=== PATIENT | female | born 1995 | race Caucasian/White ===

== ENCOUNTER 2016-09-04 08:56 | Emergency (ER) | payer BC, OTHER ==
[~2016-09-04] VITALS: Ht 175.3 cm; Wt 123.0 kg
[~2016-09-04 08:56] MED LIST: BISM262T59 PO; IBUP200C11 PO
[2016-09-04 09:23] VITALS: Ht 175.3 cm; Wt 123.0 kg
[2016-09-04] MEDS ORDERED: DEXAMETHASONE 10 MG/ML 1 ML INJ IM ONE (11:00)
[2016-09-04] MEDS ORDERED: AZIT250T94 PO (11:10)
[2016-09-04] MEDS ORDERED: PRED20TA PO (11:10)
[2016-09-04 11:25] VITALS: BP 132/74; PULSE 88; RESP 18; TEMP 97.9
--- NOTE | 2016-09-04 15:36 | ERD ---
ER Documentation Chief Complaint Date/Time DATE: 09/04/16 TIME: 15:[address] X1 WEEK AND COUGH HPI This patient is a 21-year-old female with no significant medical history presenting to the emergency department for sore throat 1 week. Additionally the patient has had tactile fevers. Last medication taken was NyQuil last night. Additionally the patient has had cough for 2 days which has been nonproductive. The patient denies urinary symptoms, nausea, vomiting, diarrhea , or other symptoms at this time. ROS All systems reviewed and are negative except as per history of present illness. Medications Home Meds Active Scripts Prednisone* (Prednisone*) 20 Mg Tab, 40 MG PO DAILY for 5 Days, #10 TAB Prov:PERCY DAO PA-C 09/04/16 Azithromycin* (Zithromax*) 250 Mg Tablet, 250 MG PO .ZPACK DIRECTED, #6 TAB TAKE 500 MG (2 TABS) THE FIRST DAY THEN 250 MG (1 TAB) DAYS 2-5 Prov:PERCY DAO PA-C 09/04/16 Reported Medications Bismuth Subsalicylate* (Pepto-Bismol*) 262 Mg Tablet, 1 TAB PO, TAB 12/09/13 Ibuprofen* (Advil*) 200 Mg Capsule, 200 MG PO Q6H Y for PAIN, CAP 12/09/13 Allergies Allergies: Coded Allergies: Penicillins (Verified Allergy, Unknown, 12/09/13) Uncoded Allergies: PCN (Allergy, Mild, RASH, 11/29/10) PMhx/Soc History of Surgery: No Anesthesia Reaction: No Hx Neurological Disorder: No Hx Respiratory Disorders: No Hx Cardiac Disorders: No Hx Psychiatric Problems: No Hx Miscellaneous Medical Probl: No Hx Alcohol Use: No Hx Substance Use: No Hx Tobacco Use: No Smoking Status: Never smoker FmHx Noncontributory for chief complaint Physical Exam Vitals Vital Signs Date Time Temp Pulse Resp B/P Pulse Ox O2 Delivery O2 Flow Rate FiO2 09/04/16 11:25 97.9 88 18 132/74 96 Room Air 09/04/16 09:23 99.4 90 18 148/91 96 Physical Exam Const: The patient is resting comfortably in no acute distress. Head: Atraumatic Eyes: Normal Conjunctiva ENT: Normal External Ears, Nose and Mouth. There is bilateral tonsillar hypertrophy with scant exudate present. There is tonsillar erythema. The airway is clear. There is no uvular deviation. Neck: Full range of motion..~ No meningismus. Resp: Clear to auscultation bilaterally Cardio: Regular rate and rhythm, no murmurs Abd: Soft, non tender, non distended. Normal bowel sounds Skin: No petechiae or rashes Back: No midline or flank tenderness Ext: No cyanosis, or edema Neur: Awake and alert Psych: Normal Mood and Affect Results 24 hrs Current Medications Medications (Trade) Dose Ordered Sig/Bryant Route PRN Reason Start Time Stop Time Status Last Admin Dose Admin Dexamethasone (Decadron) 10 mg ONCE ONCE IM 09/04/16 11:00 09/04/16 11:01 DC 09/04/16 10:52 Procedures/MDM 21-year-old female presents secondary to complaints of odynophagia. On physical examination the patient's vitals are within normal limits. Examination of the throat reveals bilateral tonsillar hypertrophy with scant exudate present. There is tonsillar erythema. Airway is clear there is no deviation and I have low suspicion for peritonsillar abscess, retropharyngeal abscess, epiglottitis, mastoiditis, septicemia, deep tissue infection, or other emergent conditions. Patient is stable for outpatient management with a prescription for azithromycin given her penicillin allergy. The patient was given 10 mg IM Decadron in the department is feeling improved on reevaluation. Patient agrees with the discharge plan and diagnosis. Strict ER return precautions were given. Patient to follow-up with her primary care physician as soon as possible. Departure Diagnosis: Primary Impression: Tonsillitis Additional Impression: Sore throat Condition: Fair Patient Instructions: When You Have a Sore Throat, Self-Care for Sore Throats, When Your Child Has Pharyngitis or Tonsillitis Referrals: COMMUNITY CLINICS YOU HAVE RECEIVED A MEDICAL SCREENING EXAM AND THE RESULTS INDICATE THAT YOU DO NOT HAVE A CONDITION THAT REQUIRES URGENT TREATMENT IN THE EMERGENCY DEPARTMENT. FURTHER EVALUATION AND TREATMENT OF YOUR CONDITION CAN WAIT UNTIL YOU ARE SEEN IN YOUR DOCTORS OFFICE WITHIN THE NEXT 1-2 DAYS. IT IS YOUR RESPONSIBILITY TO MAKE AN APPOINTMENT FOR FOLOW-UP CARE. IF YOU HAVE A PRIMARY DOCTOR --you should call your primary doctor and schedule an appointment IF YOU DO NOT HAVE A PRIMARY DOCTOR YOU CAN CALL OUR PHYSICIAN REFERRAL HOTLINE AT IF YOU CAN NOT AFFORD TO SEE A PHYSICIAN YOU CAN CHOSE FROM THE FOLLOWING [facility] [id number] [facility] [address] [facility]. [facility] [id number] [facility] [address] [facility]. [facility] [address] [facility]. [facility]. [address] Additional Instructions: Return to the emergency department immediately if you have shortness of breath, trouble swallowing, or any other new or worsening symptoms. Follow-up with your primary care physician within 1 week. Return to the emergency department immediately should you have any new or worsening symptoms, uncontrolled fevers, or other unexplained symptoms. Take all medications as directed. PERCY DAO PA-C Sep 04, 2016 15:36
== END 2016-09-04 11:25 | disposition home or self-care (01) ==
LOC: FTE 08:56
DX: J03.90 Acute tonsillitis, unspecified (principal)
CPT/HCPCS: 96372; J1100; Z7502